=== PATIENT | female | born 1980 | race Caucasian/White ===

== ENCOUNTER → 2020-01-22 | Outpatient (CLI) | payer BC ==
--- NOTE | 2020-01-22 08:17 | EKG ---
[facility] [address] [place] [address] Test Date: 2020-01-22 Test Time: 08:13:48 Pat Name: ARPAN STILES Department: Room: Gender: F [employer]: JAMESON : 1980 Requested By: STAFF NON Order Number: [id number] Reading MD: Jac Patton Measurements Intervals [place] Rate: 62 P: 44 AR: 164 QRS: 41 QRSD: 78 T: 24 QT: 394 QTc: 402 Interpretive Statements SINUS RHYTHM MINIMAL NONSPECIFIC T WAVE CHANGES IN LEAD III BORDERLINE Q WAVE LEAD V1 RI6.02 No previous ECG available for comparison Electronically Signed On 01-24-2020 10:14:57 CDT by Jac Patton
== END ==
LOC: EKG 07:57
PROVIDERS: ATTEND Nurse Practitioner Family
DX: Z51.81 Encounter for therapeutic drug level monitoring (principal)
CPT/HCPCS: 93005